=== PATIENT | female | born 2000 | race Caucasian/White ===

== ENCOUNTER → 2025-02-04 13:09 | Outpatient (CLI) | payer OTHER, SELFPAY | PROVIDERS: PCP Student in an Organized Health Care Education/Training Program; Visit Provider Chiropractor | DX: R30.0 Dysuria (principal); N94.89 Other specified conditions associated with female genital organs and menstrual cycle | CPT/HCPCS: 87077; 87086; 87186; 87210 ==

== ENCOUNTER → 2025-02-20 13:38 | Outpatient (CLI) | payer OTHER, SELFPAY ==
--- NOTE | 2025-02-20 13:39 | DI.US.S_ITS ---
PROCEDURE: US OB >= 14 WEEKS FETUS INDICATIONS: 20 week anatomy scan OUTSIDE/PRIOR DATING DATA: Last menstrual period (LMP): 10/01/2024. LMP-based estimated date of delivery (SHANI): 07/08/2025. TECHNIQUE: Real-time scanning was performed of the fetus, with image documentation and biometric measurements. COMPARISON: None. FINDINGS: General: A single living intrauterine gestation is present. Presentation: Vertex. Placenta: Placental position is anterior , without previa. Amniotic fluid index: 13.4 cm, normal range is 5-24 cm. Single deepest vertical pocket is 4.4 cm. heart rate: 152 beats per minute. Maternal cervical canal: 3.2 cm long. Normal lower limit is 2.5 cm. biometrics: Biparietal diameter: 4.6 cm which is 20 weeks 0 days Head circumference: 16.7 cm which is 19 weeks 3 days Abdominal circumference: 15.1 cm which is 20 weeks 2 days Femur length: 3.4 cm which is 20 weeks 4 days Clinically estimated gestational age: 20 weeks 2 days Composite gestational age from present scan: 20 week 3 days Estimated weight and percentile: 344 g which is 45th percentile Anatomic survey: Neuro: Ventricles are non-dilated at less than 10 mm. Cisterna magna is normal at 3-11 mm. Cerebellum is normal in size and morphology. Nuchal skin fold: Normal at less than 6 mm between 14-21 weeks gestational age. Face: Nose and lips, facial profile are normal. Spine: No evidence for spina bifida. Heart: 4-chambered heart is present. Ventricular outflow tracts are not well demonstrated due to positioning. Diaphragm: Diaphragm is intact. Stomach: Left-sided stomach is present. Kidneys: No hydronephrosis. Normal is less than 5 mm in 2nd trimester, less than 7 mm in 3rd trimester. Cord: 3-vessel cord has orthotopic insertion. Bladder: Normal in size. Extremities: All 4 extremities identified. IMPRESSION: Single living intrauterine with estimated weight 45th percentile. Limited evaluation of the heart. Short-term follow-up recommended. Otherwise normal anatomy scan. We strive to produce accurate, complete, and clear reports of imaging services. To assist us in improving patient care, this report was composed using standard report templates and voice recognition software. Therefore, it may contain abnormal punctuation, insertions and/or omissions. Occasional wrong-word or sound-alike substitutions may occur. Though we review the report and make efforts to correct it, we do recommend that the report be read carefully in proper context to recognize any text inaccuracies. Dictated by: Morgan Houser M.D. on 02/21/2025 at 11:13 Approved by: Morgan Houser M.D. on 02/21/2025 at 11:20
== END ==
LOC: US 13:39
PROVIDERS: PCP Student in an Organized Health Care Education/Training Program; Referring Provider Student in an Organized Health Care Education/Training Program; Visit Provider Student in an Organized Health Care Education/Training Program
DX: Z36.89 Encounter for other specified antenatal screening (principal); Z3A.20 20 weeks gestation of pregnancy
CPT/HCPCS: 76811

== ENCOUNTER → 2025-02-27 14:16 | Outpatient (CLI) | payer OTHER, SELFPAY ==
--- NOTE | 2025-02-27 14:17 | DI.US.S_ITS ---
PROCEDURE: US OB LIMITED INDICATIONS: Additional images needed of heart OUTSIDE/PRIOR DATING DATA: Working SHANI: 07/08/2025 TECHNIQUE: Real-time scanning was performed of the fetus, with image documentation. Endovaginal scanning: Not performed COMPARISON: [facility], OB >= 14 WEEKS FETUS, 02/20/2025, 14:19. FINDINGS: A single living intrauterine gestation is present. Presentation: Transverse maternal right. Placenta: Placental position is anterior, without previa. Placenta previa versus low lying placenta at the margin of the cervical os . Amniotic fluid index: 13.5 cm, normal range is 5-24 cm. Single deepest vertical pocket is 4.3 cm. heart rate: 155 beats per minute. Maternal cervical canal: 6.0 cm long. Normal lower limit is 2.5 cm. Clinically estimated gestational age: 21 weeks 2 days The four-chamber heart and cardiac outflow tracts appear within normal limits. IMPRESSION: Single living intrauterine at 21 weeks 2 days, SHANI of 07/08/2025. Placenta previa versus low lying placenta at the margin of the cervical os. Attention on follow-up. Four-chamber heart and cardiac outflow tracts appear within normal limits. This completes the anatomy survey. Dictated by: Saw Jimenez M.D. on 02/27/2025 at 16:01 Approved by: Saw Jimenez M.D. on 02/27/2025 at 16:08
== END ==
LOC: US 14:17
PROVIDERS: PCP Student in an Organized Health Care Education/Training Program; Referring Provider Student in an Organized Health Care Education/Training Program; Visit Provider Student in an Organized Health Care Education/Training Program
DX: Z34.02 Encounter for supervision of normal first pregnancy, second trimester (principal); Z3A.21 21 weeks gestation of pregnancy
CPT/HCPCS: 76815

== ENCOUNTER → 2025-04-01 12:50 | Outpatient (CLI) | payer OTHER, SELFPAY ==
[2025-04-01 15:26] LABS: GTT (PREG) 1 Hour PP 50gm Dose 126 mg/dL (76-139)
== END ==
PROVIDERS: PCP Student in an Organized Health Care Education/Training Program; Referring Provider Student in an Organized Health Care Education/Training Program; Visit Provider Student in an Organized Health Care Education/Training Program
DX: Z34.00 Encounter for supervision of normal first pregnancy, unspecified trimester (principal)
CPT/HCPCS: 36415; 82950

== ENCOUNTER → 2025-04-15 15:08 | Outpatient (CLI) | payer OTHER, SELFPAY ==
--- NOTE | 2025-04-15 15:09 | DI.US.S_ITS ---
PROCEDURE: US OB FOLLOW UP INDICATIONS: Placenta Previa OUTSIDE/PRIOR DATING DATA: Working SHANI 07/08/2025 TECHNIQUE: Real-time scanning was performed of the fetus, with image documentation and biometric measurements. Endovaginal scanning: Not obtained COMPARISON: [facility], OB LIMITED, 02/27/2025, 14:44. FINDINGS: General: A single living intrauterine gestation is present. Presentation: Vertex. Placenta: Placental position is anterior , without previa. Inferior placental margin measures approximately 2.4 cm from the internal os. Amniotic fluid index: 16.5 cm, normal range is 5-24 cm. Single deepest vertical pocket is 6 cm. heart rate: 144 beats per minute. Maternal cervical canal: 4.2 cm long. Normal lower limit is 2.5 cm. biometrics: Clinically estimated gestational age: 28 weeks 0 days Other: Not applicable. IMPRESSION: Single live intrauterine with gestational age today of 28 weeks 0 days. Inferior placental margin measures approximately 2.4 cm from the internal os. We strive to produce accurate, complete, and clear reports of imaging services. To assist us in improving patient care, this report was composed using standard report templates and voice recognition software. Therefore, it may contain abnormal punctuation, insertions and/or omissions. Occasional wrong-word or sound-alike substitutions may occur. Though we review the report and make efforts to correct it, we do recommend that the report be read carefully in proper context to recognize any text inaccuracies. Dictated by: Laya Alan M.D. on 04/16/2025 at 10:20 Approved by: Laya Alan M.D. on 04/16/2025 at 10:21
== END ==
LOC: US 15:09
PROVIDERS: PCP Student in an Organized Health Care Education/Training Program; Referring Provider Student in an Organized Health Care Education/Training Program; Visit Provider Student in an Organized Health Care Education/Training Program
DX: O44.03 Complete placenta previa NOS or without hemorrhage, third trimester (principal); Z3A.28 28 weeks gestation of pregnancy
CPT/HCPCS: 76816